=== PATIENT | female | born 1980 ===

== ENCOUNTER 2016-10-24 20:03 | Emergency (ER) | payer OTHER ==
[2016-10-24 20:15] VITALS: BP 115/71; PULSE 80; RESP 16; TEMP 98; O2SAT 100
[2016-10-24 21:17] LABS: BASO % 0.7 % (0.0-2.0); EOS % 0.4 % (0.0-4.0); HEMATOCRIT 32.1 % (34.0-47.0); LYMPH # 2.1 K/uL (1.0-4.3); LYMPH % 38.4 % (20.0-40.0); MEAN CELL VOLUME 89.4 fl (81.0-99.0); MEAN CORPUSCULAR HEMOGLOBIN 29.6 pg (27.0-31.0); MEAN CORPUSCULAR HGB CONC 33.1 g/dL (33.0-37.0); MEAN PLATELET VOLUME 9.8 fl (7.2-11.7); MONO # 0.7 K/uL (0.0-0.8); MONO % 12.1 % (0.0-10.0); NEUT # 2.7 K/uL (1.8-7.0); NEUT % 48.4 % (50.0-75.0); RED CELL DISTRIBUTION WIDTH 13.5 % (11.5-14.5); WHITE BLOOD COUNT 5.5 K/uL (4.8-10.8)
[2016-10-24 21:25] LABS: RBC URINE 26 /hpf (0-3); URINE BACTERIA RARE (<OCC); URINE BILIRUBIN NEGATIVE (NEGATIVE); URINE BLOOD LARGE (NEGATIVE); URINE COLOR STRAW (YELLOW); URINE GLUCOSE (UA) NEG (Normal); URINE KETONE NEGATIVE (NEGATIVE); URINE LEUKOCYTE ESTERASE NEG Leu/uL (Negative); URINE PROTEIN NEGATIVE (NEGATIVE); URINE UROBILINOGEN 0.2-1.0 mg/dL (0.2-1.0); WBC URINE 1 /hpf (0-5)
[2016-10-24] MEDS: Sodium Chloride 0.9% 1,000 ML IV STA (21:26)
[2016-10-24 21:27] LABS: ALB/GLOB RATIO 0.8 (1.0-2.1); ALKALINE PHOSPHATASE 59 U/L (38-126); ALT/SGPT 36 U/L (9-52); AST/SGOT 37 U/L (14-36); BILIRUBIN,TOTAL 0.2 mg/dl (0.2-1.3); BLOOD UREA NITROGEN 22 mg/dl (7-17); CARBON DIOXIDE 23 mmol/L (22-30); CHLORIDE 102 mmol/L (98-107); GFR AFRICAN-AMERICAN > 60; GLUCOSE,RANDOM 94 mg/dL (65-105); POTASSIUM 3.5 MMOL/L (3.6-5.0); SODIUM 134 mmol/l (132-148); TOTAL PROTEIN 8.5 G/DL (6.3-8.2)
--- NOTE | 2016-10-24 22:30 | CT ---
EXAM: CT Abdomen and Pelvis Without Intravenous Contrast CLINICAL HISTORY: 36 years old, female; Pain and signs and symptoms; Other: Hematuria; Abdominal pain; Other: Back pain; Prior surgery; Surgery date: 6+ months; Surgery type: Ovarian cyst about 2003; Additional info: Back pain, hematuria TECHNIQUE: Axial computed tomography images of the abdomen and pelvis without intravenous contrast. This CT exam was performed using one or more of the following dose reduction techniques: automated exposure control, adjustment of the mA and/or kV according to patient size, and/or use of iterative reconstruction technique. Coronal and sagittal reformatted images were created and reviewed. COMPARISON: No relevant prior studies available. FINDINGS: Lower thorax: There is minimal bibasilar atelectasis. ABDOMEN: Liver: There are no focal liver lesions present. Gallbladder and bile ducts: The gallbladder is contracted but otherwise normal. No calcified stones. No ductal dilation. Pancreas: The pancreas is normal. No ductal dilation. Spleen: The spleen is normal. Adrenals: The adrenal glands are normal. Kidneys and ureters: The kidneys are normal. No obstructing stones. No hydronephrosis. Stomach and bowel: The stomach is normal. Colonic constipation is present. There is no evidence of intestinal obstruction. No mucosal thickening. Appendix: A normal appendix is identified. PELVIS: Bladder: Bladder is decompressed. No stones. Reproductive: The uterus is normal. The ovaries are normal. ABDOMEN and PELVIS: Intraperitoneal space: There is no evidence of free intraperitoneal fluid. There is no free intraperitoneal air. Bones/joints: No acute fracture. No dislocation. Soft tissues: Unremarkable. Vasculature: The aorta is normal. No abdominal aortic aneurysm. Lymph nodes: There is no evidence of lymphadenopathy. IMPRESSION: No acute findings.
--- NOTE | 2016-10-24 23:17 | ED PDOC ---
HPI: Chest Pain Time Seen by Provider: 10/24/16 20:38 Chief Complaint (Nursing): Chest Pain Chief Complaint (Provider): chest pain History Per: Patient History/Exam Limitations: no limitations Onset/Duration Of Symptoms: Days (1) Current Symptoms Are (Timing): Still Present Quality: "Pain" Exacerbating Factors: Deep Breathing Additional History Per: Patient Additional Complaint(s): 36 y/o female presents for eval of left-sided chest pain x 1 day. Patient notes pain worse with movement of left upper extremity, and deep breaths. Patient also notes low back pain, and blood in urine x 3 days. Denies fever, nausea/vomiting, shortness of breath, palpitations, abdominal pain, changes in bowel movements, recent travel. Past Medical History Reviewed: Historical Data, Nursing Documentation, Vital Signs Vital Signs: Last Vital Signs Temp 98.0 F 10/24/16 20:12 Pulse 80 10/24/16 20:12 Resp 16 10/24/16 20:12 BP 115/71 10/24/16 20:12 Pulse Ox 100 10/24/16 23:19 - Medical History PMH: No Chronic Diseases - Surgical History Surgical History: No Surg Hx - Family History Family History: States: Unknown Family Hx - Living Arrangements Living Arrangements: With Family - Social History Current smoker - smoking cessation education provided: Yes Alcohol: None Drugs: Denies - Home Medications Home Medications: Ambulatory Orders Medication Instructions Recorded Cyclobenzaprine HCl [Flexeril] 10 mg PO HS #10 tab 04/04/15 Ibuprofen [Motrin] 600 mg PO Q6 PRN #20 tab 04/04/15 Oxycodone HCl/Acetaminophen 1 tab PO Q4 #10 tab 04/04/15 [Percocet 325 mg-5 mg] Albuterol Sulfate [Proair Hfa] 0.09 mg IH Q6H PRN #2 inh 04/21/15 Famotidine [Pepcid] 20 mg PO Q12 #20 tab 12/27/15 Naproxen [Naprosyn] 500 mg PO Q12 PRN #20 tablet 10/24/16 - Allergies Allergies/Adverse Reactions: Allergies Allergy/AdvReac Type Severity Reaction Status Date / Time No Known Allergies Allergy Verified 10/24/16 20:12 BENNIE Risk Score for UA/NSTEMI - BENNIE Risk Score Age > 64: NO 3 or more CAD Risk Factors: NO Known CAD (Stenosis greater than 50%): NO Aspirin use in past 7 days: NO Severe Angina: NO EKG ST changes greater than 0.5mm: NO Positive Cardiac Marker: NO BENNIE Score: 0 Risk %: 5% Wells Criteria for PE - Wells Criteria for Pulmonary Embolism Clinical Signs and Symptoms of DVT: No P.E is #1 Diagnosis, or Equally Likely: No Heart Rate >100: No Immobilization at least 3 days;Surgery previous 4 weeks: No Previous, objectively diagnosed PE or DVT: No Hemoptysis: No Malignancy w/treatment within 6 months, or palliative: No Total Score: 0 Review of Systems ROS Statement: Except As Marked, All Systems Reviewed And Found Negative Cardiovascular: Positive for: Chest Pain Genitourinary Female: Positive for: Hematuria Musculoskeletal: Positive for: Back Pain Physical Exam - Reviewed Nursing Documentation Reviewed: Yes Vital Signs Reviewed: Yes - Physical Exam Appears: Positive for: Well, Non-toxic, No Acute Distress Head Exam: Positive for: ATRAUMATIC, NORMAL INSPECTION, NORMOCEPHALIC Skin: Positive for: Normal Color Eye Exam: Positive for: Normal appearance ENT: Positive for: Normal ENT Inspection Cardiovascular/Chest: Positive for: Regular Rate, Rhythm. Negative for: Chest Non Tender (tender to palpate left anterior chest wall; no ecchymosis, crepitus noted. Tenderness produced upon flexion/extension left upper extremity) Respiratory: Positive for: Normal Breath Sounds Gastrointestinal/Abdominal: Positive for: Normal Exam Back: Positive for: Normal Inspection, Muscle Spasm (paraspinal discomfort). Negative for: L CVA Tenderness, R CVA Tenderness, Vertebral Tenderness, Decreased ROM Extremity: Positive for: Normal ROM Neurologic/Psych: Positive for: Alert, Oriented - Laboratory Results Result Diagrams: 10/24/16 21:10 10/24/16 21:10 - ECG ECG: Positive for: Viewed By Me (reviewed by ED attending) ECG Rhythm: Positive for: Sinus Rhythm O2 Sat by Pulse Oximetry: 100 Pulse Ox Interpretation: Normal - Radiology X-Ray: Viewed By Me X-Ray Interpretation: No Acute Disease - Progress ED Course And Treament: labs, urine, CT renal protocol, chest xray, ekg, IV toradol, IV fluids On re-eval, patient notes improvement of pain. Patient educated on findings, discharged with rx Naproxen. Advised follow up PMD 2-3 days. Return to ED for worsening/concerning symptoms. Disposition - Clinical Impression Clinical Impression: Atypical chest pain, Hematuria, Back pain - Patient ED Disposition Is Patient to be Admitted: No Counseled Patient/Family Regarding: Studies Performed, Diagnosis, Need For Followup, Rx Given - Disposition Disposition: Routine/Home Disposition Time: 23:28 Condition: IMPROVED Additional Instructions: Follow up with primary doctor in 2-3 days. Take medication as directed, as needed. Return to ED for worsening/concerning symptoms. Prescriptions: Naproxen [Naprosyn] 500 mg PO Q12 PRN #20 tablet PRN Reason: Pain, Moderate (4-7) Instructions: Acute Low Back Pain (ED), Acute Hematuria (ED), Noncardiac Chest Pain (ED)
--- NOTE | 2016-10-25 10:11 | RAD ---
HISTORY: chest pain COMPARISON: Comparison chest 04/21/2015 TECHNIQUE: Chest PA and lateral FINDINGS: LUNGS: No active pulmonary disease. PLEURA: No significant pleural effusion identified. No pneumothorax apparent. CARDIOVASCULAR: Normal. OSSEOUS STRUCTURES: Minor multilevel degenerative spondylosis with mild fish-mouth endplate deformities. VISUALIZED UPPER ABDOMEN: Normal. OTHER FINDINGS: None. IMPRESSION: No active disease.
== END 2016-10-24 23:29 | disposition home or self-care (01) ==
LOC: H.ER 20:03
DX: R07.9 Chest pain, unspecified (principal); M54.9 Dorsalgia, unspecified; R31.9 Hematuria, unspecified; F17.200 Nicotine dependence, unspecified, uncomplicated

== ENCOUNTER 2016-12-15 20:20 | Emergency (ER) | payer OTHER ==
--- NOTE | 2016-12-15 21:00 | ED PDOC ---
HPI: General Adult Time Seen by Provider: 12/15/16 20:34 Chief Complaint (Nursing): Abdominal Pain History Per: Patient Additional Complaint(s): Pt. states 3 weeks ago she had her umbilicus pierced and for the past several day she's had discharge and redness from the area. Denies fever, trauma, abdominal pain. Past Medical History Reviewed: Historical Data, Nursing Documentation, Vital Signs Vital Signs: Last Vital Signs Temp 98.5 F 12/15/16 20:27 Pulse 74 12/15/16 20:27 Resp 16 12/15/16 20:27 BP 132/82 12/15/16 20:27 Pulse Ox 100 12/15/16 20:27 - Family History Family History: States: Unknown Family Hx - Home Medications Home Medications: Ambulatory Orders Medication Instructions Recorded Cyclobenzaprine HCl [Flexeril] 10 mg PO HS #10 tab 04/04/15 Ibuprofen [Motrin] 600 mg PO Q6 PRN #20 tab 04/04/15 Oxycodone HCl/Acetaminophen 1 tab PO Q4 #10 tab 04/04/15 [Percocet 325 mg-5 mg] Albuterol Sulfate [Proair Hfa] 0.09 mg IH Q6H PRN #2 inh 04/21/15 Famotidine [Pepcid] 20 mg PO Q12 #20 tab 12/27/15 Naproxen [Naprosyn] 500 mg PO Q12 PRN #20 tablet 10/24/16 Cephalexin [cephalexin] 500 mg PO Q6 #28 cap 12/15/16 Sulfamethoxazole/Trimethoprim 2 tab PO BID #28 tab 12/15/16 [Bactrim DS 800 mg-160 mg] - Allergies Allergies/Adverse Reactions: Allergies Allergy/AdvReac Type Severity Reaction Status Date / Time No Known Allergies Allergy Verified 10/24/16 20:12 Review of Systems ROS Statement: Except As Marked, All Systems Reviewed And Found Negative Physical Exam - Physical Exam Appears: Positive for: Well, Non-toxic, No Acute Distress Skin: Positive for: Normal Color, Warm. Negative for: Rash Gastrointestinal/Abdominal: Positive for: Soft. Negative for: Normal Exam ( umibilicus with minimal surrounding erythema yellow discharge but no fluctuance and yellow discharge noted superior to umbilicus where other piercing is located ; piercing was removed manually by pt. without difficulty ), Tenderness - ECG O2 Sat by Pulse Oximetry: 100 Disposition - Clinical Impression Clinical Impression: Cellulitis - Patient ED Disposition Is Patient to be Admitted: No - Disposition Disposition: Routine/Home Disposition Time: 21:01 Condition: STABLE Additional Instructions: Follow up with your PMD in 2 days for wound check. Return to ED immediately if fever develops or symptoms worsen. Prescriptions: Cephalexin [cephalexin] 500 mg PO Q6 #28 cap Sulfamethoxazole/Trimethoprim [Bactrim DS 800 mg-160 mg] 2 tab PO BID #28 tab Instructions: Cellulitis (ED) Print Language: LUX[place]BOURGISH
[2016-12-16 12:10] VITALS: BP 132/82; PULSE 74; RESP 16; TEMP 98.5; O2SAT 100
== END 2016-12-15 21:17 | disposition home or self-care (01) ==
LOC: H.ER 20:20
DX: L03.116 Cellulitis of left lower limb (principal)

== ENCOUNTER 2017-01-28 21:29 | Emergency (ER) | payer OTHER ==
[2017-01-28 21:33] VITALS: BMI 23.3
[2017-01-28 21:35] VITALS: PULSE 80; RESP 16; O2SAT 100
[2017-01-28] MEDS ORDERED: Lidocaine 5% Patch TD STA (22:14)
[2017-01-28] MEDS ORDERED: Sodium Chloride 0.9% 1,000 ML IV STA (22:19)
--- NOTE | 2017-01-28 22:30 | ED PDOC ---
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 She says she has never had this pain before, it started at lateral hip and was sharp, radiating pain into lower leg, but denies a sciatica- type distribution, denies buttock pain, denies lower back pain, denies bowel or bladder incontinence. She describes the entire circumference of her leg from proximal to distal and today had worsening symptoms of pain and inability to move the extremity due to the pain as well as "not being able to feel her leg". She was able to attend a social engagement today (consumed 2-3 beers) and was able to drive. She has taken Ibuprofen, 1 tablet every 4-6hrs, the last pill was this morning. Otherwise, she denies dizziness, SOB, chest pain, N/V, abdominal pain, diarrhea , symptoms. PMD: Rogelio Pee LMP: 01/09/2017 PMH: Asthma PSH: C-sxn x2 ALL: NKDA Smoke: Yes Alcohol: Yes Drugs: Denies - Risk Factors DVT Risk Factors: Pos: None <Kathrine Yates - Last Filed: 01/29/17 00:21> <Virgen Hardy - Last Filed: 01/29/17 14:11> Time Seen by Provider: 01/28/17 21:43 Chief Complaint (Nursing): Lower Extremity Problem/Injury Supervising Attending Note - Supervising Attending Note The Documented history was done by the: Physician Auto Overhauler The documented physical exam was done by the: Physician Auto Overhauler, Attending Physician - Attestation: I have personally seen and examined this patient.: Yes I have fully participated in the care of the patient.: Yes I have reviewed all pertinent clinical information, including history, physical exam and plan: Yes <Virgen Hardy - Last Filed: 01/29/17 14:11> Past Medical History Vital Signs: Last Vital Signs Temp 37.0 C 01/28/17 21:33 Pulse 80 01/28/17 21:33 Resp 16 01/28/17 21:33 BP 147/79 01/28/17 21:33 Pulse Ox 100 01/28/17 21:33 - Medical History PMH: Asthma, Migraine - Family History Family History: States: Unknown Family Hx - Social History Current smoker - smoking cessation education provided: Yes <Kathrine Yates - Last Filed: 01/29/17 00:21> Vital Signs: Last Vital Signs Temp 97.9 F 01/29/17 00:33 Pulse 80 01/29/17 00:33 Resp 16 01/29/17 00:33 BP 129/65 01/29/17 00:33 Pulse Ox 100 01/29/17 00:33 <Virgen Hardy - Last Filed: 01/29/17 14:11> - Home Medications Home Medications: Ambulatory Orders Medication Instructions Recorded Cyclobenzaprine HCl [Flexeril] 10 mg PO HS #10 tab 04/04/15 Ibuprofen [Motrin] 600 mg PO Q6 PRN #20 tab 04/04/15 Oxycodone HCl/Acetaminophen 1 tab PO Q4 #10 tab 04/04/15 [Percocet 325 mg-5 mg] Albuterol Sulfate [Proair Hfa] 0.09 mg IH Q6H PRN #2 inh 04/21/15 Famotidine [Pepcid] 20 mg PO Q12 #20 tab 12/27/15 Naproxen [Naprosyn] 500 mg PO Q12 PRN #20 tablet 10/24/16 Cephalexin [cephalexin] 500 mg PO Q6 #28 cap 12/15/16 Sulfamethoxazole/Trimethoprim 2 tab PO BID #28 tab 12/15/16 [Bactrim DS 800 mg-160 mg] Cyclobenzaprine [Flexeril] 5 mg PO Q8 PRN #15 tab 01/29/17 Lidocaine 5% [Lidoderm] 1 ea TD DAILY PRN #20 patch 01/29/17 Naproxen [Naprosyn] 1 tab PO BID PRN #60 tab 01/29/17 - Allergies Allergies/Adverse Reactions: Allergies Allergy/AdvReac Type Severity Reaction Status Date / Time No Known Allergies Allergy Verified 01/28/17 21:33 Review of Systems Musculoskeletal: Positive for: Leg Pain (LEFT as per HPI) <Kathrine Yates - Last Filed: 01/29/17 00:21> Physical Exam - Physical Exam Appears: Positive for: Well, Non-toxic Head Exam: Positive for: ATRAUMATIC, NORMAL INSPECTION Skin: Positive for: Normal Color, Warm, Dry Eye Exam: Positive for: EOMI, PERRL Neck: Positive for: Supple Cardiovascular/Chest: Positive for: Regular Rate, Rhythm Respiratory: Positive for: Normal Breath Sounds. Negative for: Crackles, Rales , Wheezing Pulses-Dorsalis Pedis (L): 2+ Pulses-Dorsalis Pedis (R): 2+ Pulses-Post. Tibialis (L): 2+ Pulses-Post. Tibialis (R): 2+ Gastrointestinal/Abdominal: Positive for: Normal Exam, Soft. Negative for: Tenderness Back: Negative for: Vertebral Tenderness, Muscle Spasm Extremity: Positive for: Capillary Refill (WNL). Negative for: Normal ROM ( Unable to perform active/passive ROM or DTRs due to patient's baseline discomfort ), Pedal Edema, Calf Tenderness, Deformity, Swelling Neurologic/Psych: Positive for: Alert, Oriented <Kathrine Yates - Last Filed: 01/29/17 00:21> - Laboratory Results Result Diagrams: 01/28/17 22:45 01/28/17 22:45 - ECG O2 Sat by Pulse Oximetry: 100 <Kathrine Yates - Last Filed: 01/29/17 00:21> - Laboratory Results Result Diagrams: 01/28/17 22:45 01/28/17 22:45 <Virgen Hardy - Last Filed: 01/29/17 14:11> Medical Decision Making Medical Decision MakinF with acute onset LLE pain radicular vs. sciatica vs. IT band inflammation - CBC - CMP, Mg, Phos - Alcohol - Urine Dip, UDS - Hip/L-S Spine Radiology - Tylenol, Flexeril, Toradol, Lidocaine Patch - 1L NS bolus RE-EVAL CBC: normocytic anemia Hip/L-S Spine: no acute bony abnormalities, joint spaces preserved Pain improved <Kathrine Yates - Last Filed: 01/29/17 00:21> Disposition - Patient ED Disposition Is Patient to be Admitted: No Counseled Patient/Family Regarding: Need For Followup, Rx Given - Disposition Disposition: Routine/Home Disposition Time: 00:20 <Kathrine Yates - Last Filed: 01/29/17 00:21> <Virgen Hardy - Last Filed: 01/29/17 14:11> - Clinical Impression Clinical Impression: Radicular pain - Disposition Referrals: Rogelio Glasgow MD [Staff Provider] - Condition: IMPROVED Prescriptions: Cyclobenzaprine [Flexeril] 5 mg PO Q8 PRN #15 tab PRN Reason: muscle spasm Lidocaine 5% [Lidoderm] 1 ea TD DAILY PRN #20 patch PRN Reason: PAIN Naproxen [Naprosyn] 1 tab PO BID PRN #60 tab PRN Reason: Pain Instructions: Lumbar Radiculopathy (ED), Back Exercises (ED) Forms: [employer] [facility] (Danish), [facility] ED School/Work Excuse
[2017-01-28 22:48] LABS: BASO % 0.6 % (0.0-2.0); EOS % 0.7 % (0.0-4.0); HEMATOCRIT 30.6 % (34.0-47.0); LYMPH # 2.1 K/uL (1.0-4.3); LYMPH % 32.2 % (20.0-40.0); MEAN CELL VOLUME 91.8 fl (81.0-99.0); MEAN CORPUSCULAR HEMOGLOBIN 30.3 pg (27.0-31.0); MEAN PLATELET VOLUME 8.8 fl (7.2-11.7); MONO # 0.6 K/uL (0.0-0.8); MONO % 8.7 % (0.0-10.0); NEUT # 3.9 K/uL (1.8-7.0); NEUT % 57.8 % (50.0-75.0); NRBC % 0.1 % (0.0-0.0); RED CELL DISTRIBUTION WIDTH 12.9 % (11.5-14.5); WHITE BLOOD COUNT 6.7 K/uL (4.8-10.8)
[2017-01-28] MEDS ORDERED: Lidocaine 5% Patch TD ONE (22:56)
[2017-01-28 22:58] LABS: ALB/GLOB RATIO 0.9 (1.0-2.1); ALCOHOL SERUM < 10 mg/dl (0-10); ALKALINE PHOSPHATASE 53 U/L (38-126); ALT/SGPT 24 U/L (9-52); AST/SGOT 30 U/L (14-36); BILIRUBIN,TOTAL 0.3 mg/dl (0.2-1.3); BLOOD UREA NITROGEN 26 mg/dl (7-17); CALCIUM 9.3 mg/dL (8.4-10.2); CARBON DIOXIDE 25 mmol/L (22-30); CHLORIDE 105 mmol/L (98-107); GFR AFRICAN-AMERICAN 55; GLUCOSE,RANDOM 95 mg/dL (65-105); MAGNESIUM 1.7 MG/DL (1.6-2.3); POTASSIUM 3.5 MMOL/L (3.6-5.0); SODIUM 138 mmol/l (132-148); TOTAL PROTEIN 7.6 G/DL (6.3-8.2)
[2017-01-29 00:33] VITALS: BP 129/65; TEMP 97.9
--- NOTE | 2017-01-29 11:31 | RAD ---
PROCEDURE: Left Hip X-ray Radiographs. HISTORY: LEFT hip pain COMPARISON: None. FINDINGS: BONES: Normal. No fracture. JOINTS: Normal. SOFT TISSUES: Normal. OTHER FINDINGS: None. IMPRESSION: [id number] arthritic changes. No acute fracture.
--- NOTE | 2017-01-29 16:47 | RAD ---
PROCEDURE: Radiographs of the Lumbar Spine. HISTORY: radicular pain COMPARISON: No prior. FINDINGS: BONES: Normal alignment. No listhesis. No fracture. DISC SPACES: Unremarkable. OTHER FINDINGS: None. IMPRESSION: Unremarkable radiographs of the lumbar spine.
== END 2017-01-29 00:36 | disposition home or self-care (01) ==
LOC: H.ER 21:29
DX: M54.10 Radiculopathy, site unspecified (principal)
CPT/HCPCS: 72100; 73502; 80053; 80320; 81025; 83735; 84100; 85025; 96374; 99284; J1885; J7040

== ENCOUNTER 2017-09-27 14:42 | Emergency (ER) | payer OTHER ==
[2017-09-27 14:42] VITALS: BMI 23.3
[2017-09-27 14:56] VITALS: BP 131/83; PULSE 67; RESP 16; TEMP 98.4; O2SAT 99
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
== END 2017-09-27 18:48 | disposition home or self-care (01) ==
LOC: H.ER 14:42
DX: S09.90XA Unspecified injury of head, initial encounter (principal); S43.409A Unspecified sprain of unspecified shoulder joint, initial encounter; S20.219A Contusion of unspecified front wall of thorax, initial encounter; S13.4XXA Sprain of ligaments of cervical spine, initial encounter; J45.909 Unspecified asthma, uncomplicated; V47.0XXA Car driver injured in collision with fixed or stationary object in nontraffic accident, initial encounter

== ENCOUNTER 2017-11-26 04:44 | Emergency (ER) | payer OTHER ==
[2017-11-26 04:45] VITALS: BMI 23.3
[2017-11-26 05:06] VITALS: BP 130/84; PULSE 74; RESP 16; TEMP 98; O2SAT 98
[2017-11-26] MEDS ORDERED: Naproxen 500 MG TAB PO STA (05:13)
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
[2017-11-26] MEDS ORDERED: Naproxen 500 MG TAB PO ONE (05:25)
--- NOTE | 2017-11-26 13:32 | RAD ---
PROCEDURE: Radiographs of the Chest and Left Ribs. HISTORY: pain COMPARISON: None available. TECHNIQUE: Frontal radiograph of the chest and multiple oblique radiographs of the left ribs were obtained. FINDINGS: LEFT RIBS: No fracture or focal lesion visualized. LUNGS: Clear. PLEURA: No pneumothorax or pleural fluid. CARDIOVASCULAR: Normal sized heart. No pulmonary vascular congestion. OTHER FINDINGS: None. IMPRESSION: Unremarkable radiographs of the chest and left ribs. No left rib fracture.
== END 2017-11-26 06:15 | disposition home or self-care (01) ==
LOC: H.ER 04:44
DX: S22.32XA Fracture of one rib, left side, initial encounter for closed fracture (principal); W19.XXXA Unspecified fall, initial encounter; Y92.89 Other specified places as the place of occurrence of the external cause

== ENCOUNTER 2018-06-12 20:49 | Emergency (ER) | payer OTHER ==
[2018-06-12 20:49] VITALS: BMI 23.3
[2018-06-12] MEDS ORDERED: Albuterol-Ipratrop 3 mg / 0.5 (3 ml) UD IH STA (22:37)
--- NOTE | 2018-06-12 22:40 | ED PDOC ---
HPI: CCC, URI, Sore Throat Time Seen by Provider: 06/12/18 22:19 Chief Complaint (Nursing): Flu-like Symptoms Chief Complaint (Provider): cough, congestion History Per: Patient History/Exam Limitations: no limitations Onset/Duration Of Symptoms: Days (5) Current Symptoms Are (Timing): Still Present Associated Symptoms: Fever, Chills, Cough, Sputum, Myalgias, Nasal Congestion Additional Complaint(s): 38 y/o female presents for evaluation of cough and congestion x 5 days. Patient reports intermittent fevers, headaches, bodyaches, nasal congestion, and cough. Patient states cough has worsened the last two days. Denies chest pain, shortness of breath, palpitations, vomiting/diarrhea, abdominal pain, urinary symptoms, recent travel, sick contacts. Has been taking Tylenol PM with little improvement Past Medical History Reviewed: Historical Data, Nursing Documentation, Vital Signs Vital Signs: Last Vital Signs Temp 98.2 F 06/12/18 22:00 Pulse 73 06/12/18 22:00 Resp 16 06/12/18 22:00 BP 109/61 06/12/18 22:00 Pulse Ox 98 06/12/18 22:00 - Medical History PMH: Asthma, Migraine - Surgical History Surgical History: No Surg Hx - Family History Family History: States: Unknown Family Hx - Living Arrangements Living Arrangements: With Family - Home Medications Home Medications: Ambulatory Orders Medication Instructions Recorded Cyclobenzaprine HCl [Flexeril] 10 mg PO HS #10 tab 04/04/15 Ibuprofen [Motrin] 600 mg PO Q6 PRN #20 tab 04/04/15 Oxycodone HCl/Acetaminophen 1 tab PO Q4 #10 tab 04/04/15 [Percocet 325 mg-5 mg] Albuterol Sulfate [Proair Hfa] 0.09 mg IH Q6H PRN #2 inh 04/21/15 Famotidine [Pepcid] 20 mg PO Q12 #20 tab 12/27/15 Naproxen [Naprosyn] 500 mg PO Q12 PRN #20 tablet 10/24/16 Cephalexin [cephalexin] 500 mg PO Q6 #28 cap 12/15/16 Sulfamethoxazole/Trimethoprim 2 tab PO BID #28 tab 12/15/16 [Bactrim DS 800 mg-160 mg] Cyclobenzaprine [Flexeril] 5 mg PO Q8 PRN #15 tab 01/29/17 Lidocaine 5% [Lidoderm] 1 ea TD DAILY PRN #20 patch 01/29/17 Naproxen [Naprosyn] 1 tab PO BID PRN #60 tab 01/29/17 Cyclobenzaprine [Cyclobenzaprine 10 mg PO TID PRN #20 tab 09/27/17 HCl] Naproxen [Naprosyn] 500 mg PO BID #20 tab 09/27/17 traMADol [Ultram] 50 mg PO TID PRN #15 tab 09/27/17 Meloxicam [Mobic] 15 mg PO DAILY PRN #30 tab 11/26/17 Fluticasone Nasal [Flonase] 1 actuation NS BID #1 bottle 06/12/18 Ibuprofen [Motrin Tab] 1 tab PO Q6 PRN #15 tab 06/12/18 Promethazine HCl/Codeine 5 ml PO Q8 PRN #75 ml 06/12/18 [Prometh-Codein 6.25-10 mg/5 ml] predniSONE [Prednisone] 60 mg PO DAILY #12 tab 06/12/18 - Allergies Allergies/Adverse Reactions: Allergies Allergy/AdvReac Type Severity Reaction Status Date / Time No Known Allergies Allergy Verified 06/12/18 22:00 Review of Systems ROS Statement: Except As Marked, All Systems Reviewed And Found Negative ENT: Positive for: Nose Congestion Respiratory: Positive for: Cough Physical Exam - Reviewed Nursing Documentation Reviewed: Yes Vital Signs Reviewed: Yes - Physical Exam Appears: Positive for: Well, Non-toxic, No Acute Distress Head Exam: Positive for: ATRAUMATIC, NORMAL INSPECTION, NORMOCEPHALIC Skin: Positive for: Normal Color Eye Exam: Positive for: Normal appearance ENT: Positive for: Nasal Congestion Neck: Positive for: Normal Cardiovascular/Chest: Positive for: Regular Rate, Rhythm Respiratory: Positive for: Normal Breath Sounds Gastrointestinal/Abdominal: Positive for: Normal Exam Back: Positive for: Normal Inspection Extremity: Positive for: Normal ROM Neurologic/Psych: Positive for: Alert, Oriented (x3) - ECG O2 Sat by Pulse Oximetry: 98 - Radiology X-Ray: Viewed By Ne X-Ray Interpretation: No Acute Disease - Progress ED Course And Treament: -upreg -cxr -duoneb -prednisone PO Patient educated on findings, out of tamiflu window, discharged with rx prednisone, promethazine with codeine, flonase, and ibuprofen Advised follow up PMD within 2-3 days Rest. Fluids Return precautions given Disposition - Clinical Impression Clinical Impression: Influenza-like symptoms - Patient ED Disposition Is Patient to be Admitted: No Counseled Patient/Family Regarding: Studies Performed, Diagnosis, Need For Followup, Rx Given - Disposition Disposition: Routine/Home Disposition Time: 00:12 Condition: IMPROVED Prescriptions: Fluticasone Nasal [Flonase] 1 actuation NS BID #1 bottle Ibuprofen [Motrin Tab] 1 tab PO Q6 PRN #15 tab PRN Reason: Pain, Moderate (4-7) predniSONE [Prednisone] 60 mg PO DAILY #12 tab Promethazine HCl/Codeine [Prometh-Codein 6.25-10 mg/5 ml] 5 ml PO Q8 PRN #75 ml PRN Reason: Cough Instructions: Viral Syndrome (DC) Forms: [employer] (Albanian)
[2018-06-12] MEDS ORDERED: Naproxen 500 MG TAB PO ONE ×2 (22:42→23:25)
[2018-06-12] MEDS ORDERED: Albuterol-Ipratrop 3 mg / 0.5 (3 ml) UD ONE (23:31)
[2018-06-13 01:11] VITALS: BP 112/61; PULSE 85; RESP 14; TEMP 98.3; O2SAT 99
--- NOTE | 2018-06-13 09:46 | RAD ---
Date of service: 06/12/2018 HISTORY: fever, cough COMPARISON: No prior. TECHNIQUE: Chest PA and lateral FINDINGS: LUNGS: No active pulmonary disease. PLEURA: No significant pleural effusion identified. No pneumothorax apparent. CARDIOVASCULAR: No aortic atherosclerotic calcification present. Normal cardiac size. No pulmonary vascular congestion. OSSEOUS STRUCTURES: No significant abnormalities. VISUALIZED UPPER ABDOMEN: Normal. OTHER FINDINGS: None. IMPRESSION: No acute cardiopulmonary disease appreciated.
== END 2018-06-13 00:55 | disposition home or self-care (01) ==
LOC: H.ER 20:49
DX: J11.1 Influenza due to unidentified influenza virus with other respiratory manifestations (principal)

== ENCOUNTER 2018-10-01 22:06 | Emergency (ER) | payer OTHER ==
[2018-10-01 22:31] VITALS: BMI 22.6
[2018-10-01] MEDS ORDERED: DiphenhydrAMINE 50 mg/ml Inj IVP STA (22:58)
[2018-10-01] MEDS ORDERED: Clindamycin in NS 300 MG/50 ML BAG IVPB STA (22:59)
[2018-10-01] MEDS ORDERED: DiphenhydrAMINE 50 mg/ml Inj ONE (23:38)
[2018-10-01 23:46] LABS: BASO % 0.2 % (0.0-2.0); EOS # 0.1 K/uL (0.0-0.7); EOS % 2.2 % (0.0-4.0); HEMOGLOBIN 10.5 g/dL (12.0-16.0); LYMPH % 37.3 % (20.0-40.0); MEAN CELL VOLUME 89.4 fl (81.0-99.0); MEAN CORPUSCULAR HEMOGLOBIN 30.2 pg (27.0-31.0); MEAN CORPUSCULAR HGB CONC 33.8 g/dL (33.0-37.0); MEAN PLATELET VOLUME 9.5 fl (7.2-11.7); MONO # 0.6 K/uL (0.0-0.8); MONO % 10.5 % (0.0-10.0); NEUT # 2.7 K/uL (1.8-7.0); NEUT % 49.8 % (50.0-75.0); NRBC % 0.2 % (0.0-0.0); RBC 3.48 Mil/uL (3.80-5.20); RED CELL DISTRIBUTION WIDTH 13.9 % (11.5-14.5); WHITE BLOOD COUNT 5.5 K/uL (4.8-10.8)
--- NOTE | 2018-10-01 23:47 | ED PDOC ---
HPI: Skin/Bite Injury Time Seen by Provider: 10/01/18 22:48 Chief Complaint (Nursing): Allergic Reaction Chief Complaint (Provider): Rash History Per: Patient History/Exam Limitations: no limitations Onset/Duration Of Symptoms: Days (x 1) Current Symptoms Are (Timing): Still Present Quality Of Symptoms: Itching, Swollen Additional Complaint(s): 38 year old female with no significant medical history presents to the ED for evaluation of a rash present on her left lower eyelid, right lower extremity and back since this morning. Patient reports that the rash began in her left lower eyelid and describes it as red, swollen and puffy. Soon after she developed redness on her right lower extremity and red spots on her back. Rash is tender and itchy. Initially she thought it was due to an allergic reaction. Patient also felt feverish and took Ibuprofen. Denies new food, detergent and any other exposures. PMD: Dr. Rogelio Glasgow Past Medical History Reviewed: Historical Data, Nursing Documentation, Vital Signs Vital Signs: Last Vital Signs Temp 97.7 F 10/01/18 22:31 Pulse 69 10/01/18 22:31 Resp 18 10/01/18 22:31 BP 115/76 10/01/18 22:31 Pulse Ox 100 10/01/18 22:31 Primary Care Provider: Rogelio Glasgow - Medical History PMH: Asthma, Migraine - Surgical History Surgical History: No Surg Hx - Family History Family History: States: Unknown Family Hx - Home Medications Home Medications: Ambulatory Orders Medication Instructions Recorded Cyclobenzaprine HCl [Flexeril] 10 mg PO HS #10 tab 04/04/15 Ibuprofen [Motrin] 600 mg PO Q6 PRN #20 tab 04/04/15 Oxycodone HCl/Acetaminophen 1 tab PO Q4 #10 tab 04/04/15 [Percocet 325 mg-5 mg] Albuterol Sulfate [Proair Hfa] 0.09 mg IH Q6H PRN #2 inh 04/21/15 Famotidine [Pepcid] 20 mg PO Q12 #20 tab 12/27/15 Naproxen [Naprosyn] 500 mg PO Q12 PRN #20 tablet 10/24/16 Cephalexin [cephalexin] 500 mg PO Q6 #28 cap 12/15/16 Sulfamethoxazole/Trimethoprim 2 tab PO BID #28 tab 12/15/16 [Bactrim DS 800 mg-160 mg] Cyclobenzaprine [Flexeril] 5 mg PO Q8 PRN #15 tab 01/29/17 Lidocaine 5% [Lidoderm] 1 ea TD DAILY PRN #20 patch 01/29/17 Naproxen [Naprosyn] 1 tab PO BID PRN #60 tab 01/29/17 Cyclobenzaprine [Cyclobenzaprine 10 mg PO TID PRN #20 tab 09/27/17 HCl] Naproxen [Naprosyn] 500 mg PO BID #20 tab 09/27/17 traMADol [Ultram] 50 mg PO TID PRN #15 tab 09/27/17 Meloxicam [Mobic] 15 mg PO DAILY PRN #30 tab 11/26/17 Fluticasone Nasal [Flonase] 1 actuation NS BID #1 bottle 06/12/18 Ibuprofen [Motrin Tab] 1 tab PO Q6 PRN #15 tab 06/12/18 Promethazine HCl/Codeine 5 ml PO Q8 PRN #75 ml 06/12/18 [Prometh-Codein 6.25-10 mg/5 ml] predniSONE [Prednisone] 60 mg PO DAILY #12 tab 06/12/18 Clindamycin [Cleocin] 300 mg PO TID 10 Days cap 10/02/18 Prednisone [Deltasone] 40 mg PO DAILY 3 Days #6 tablet 10/02/18 - Allergies Allergies/Adverse Reactions: Allergies Allergy/AdvReac Type Severity Reaction Status Date / Time No Known Allergies Allergy Verified 10/01/18 22:31 Review of Systems ROS Statement: Except As Marked, All Systems Reviewed And Found Negative Skin: Positive for: Rash Physical Exam - Reviewed Nursing Documentation Reviewed: Yes Vital Signs Reviewed: Yes - Physical Exam Appears: Positive for: No Acute Distress Head Exam: Positive for: ATRAUMATIC, NORMAL INSPECTION, NORMOCEPHALIC Skin: Positive for: Warm, Rash Eye Exam: Positive for: Other (lower left eyelid with mild erythema and swelling) Cardiovascular/Chest: Positive for: Regular Rate, Rhythm. Negative for: Murmur Respiratory: Positive for: Normal Breath Sounds. Negative for: Respiratory Distress Gastrointestinal/Abdominal: Positive for: Soft, Other (scattered, raised erythema on abdomen). Negative for: Tenderness Back: Positive for: Other (scattered, raised erythema on back). Negative for: L CVA Tenderness, R CVA Tenderness Extremity: Positive for: Normal ROM (x 4), Swelling (swollen wrists bilaterally with mild erythema), Other (large patch of erythema measured at approximately 8cm x 9cm on the back of the lower left extremity. ). Negative for: Deformity Neurological/Psych: Positive for: Awake, Alert, Normal Tone, Oriented (x 3). Negative for: Motor/Sensory Deficits - Laboratory Results Result Diagrams: 10/01/18 23:22 10/01/18 23:22 - ECG O2 Sat by Pulse Oximetry: 100 (RA) Pulse Ox Interpretation: Normal Medical Decision Making Medical Decision Makin:58 MDM: unspecific rash Unclear if allergy mediated vs infectious vs secondary to undiagnosed connective tissue disorder or inflammatory condition Orders: --BMP --CBC --CRP --ESR --Benadryl 50 mg IVP --Clindamycin 300 mg in NS 50ml IVPB --[id number] mg IVP --Blood cx 200 --Symptoms improved, advised patient to continue antibiotics --Strongly encouraged followup with Dr. Glasgow by end of week, return precautions were discussed --Well appearing upon discharge Scribe Attestation: Documented by Juli Corona, acting as a scribe Bc Bedoya MD Provider Scribe Attestation: All medical record entries made by the Scribe were at my direction and personal ly dictated by me. I have reviewed the chart and agree that the record accurately reflects my personal performance of the history, physical exam, medical decision making, and the department course for this patient. I have also personally directed, reviewed, and agree with the discharge instructions and disposition. Disposition - Clinical Impression Clinical Impression: Cellulitis - Patient ED Disposition Is Patient to be Admitted: No Counseled Patient/Family Regarding: Studies Performed, Diagnosis, Need For Followup, Rx Given - Disposition Referrals: Rogelio Glasgow MD [Staff Provider] - Disposition: Routine/Home Disposition Time: 02:00 Condition: IMPROVED Prescriptions: Clindamycin [Cleocin] 300 mg PO TID 10 Days cap Prednisone [Deltasone] 40 mg PO DAILY 3 Days #6 tablet Instructions: Cellulitis and Erysipelas (Skin Infections) Forms: [employer] (Latvian)
[2018-10-01 23:52] LABS: BLOOD UREA NITROGEN 28 mg/dl (7-17); GFR NON-AFRICAN AMERICAN > 60
[2018-10-02 02:15] VITALS: BP 102/44; PULSE 62; RESP 16
[2018-10-02 03:32] VITALS: O2SAT 100
[2018-10-02 05:00] VITALS: TEMP 98.2
== END 2018-10-02 02:15 | disposition home or self-care (01) ==
LOC: H.ER 22:06
DX: H00.035 Abscess of left lower eyelid (principal); J45.909 Unspecified asthma, uncomplicated; T78.40XA Allergy, unspecified, initial encounter
CPT/HCPCS: 80048; 81025; 85025; 85651; 86140; 87040; 96365; 96375; 99285; J1200; J2930